=== PATIENT | male | born 1945 | race Two or more races ===

== ENCOUNTER 2017-10-24 07:29 | Inpatient (IN) | payer OTHER ==
[2017-10-21 12:17] LABS: Basophils # (auto) 0 uL; Basophils % (auto) 0.5 % (0.0-2.0); Eosinophils # (auto) 0.2 uL; Eosinophils % (auto) 3.7 % (0.0-7.0); Hematocrit 44.6 % (41.0-53.0); Hemoglobin 14.7 g/dL (13.5-17.5); Lymphocytes # (auto) 2.3 uL; Lymphocytes % (auto) 34.6 % (10.0-50.0); Mean Corpuscular Hemoglobin 30.1 pg (28.0-32.0); Mean Corpuscular Volume 91.2 fL (80.0-100.0); Monocytes # (auto) 0.5 uL; Monocytes % (auto) 7.6 % (0.0-12.0); Neutrophils # (auto) 3.6 uL; Neutrophils % (auto) 53.6 % (37.0-80.0); Nucleated Red Blood Cells % 0.1 %; Platelet Count (auto) 208 10^3/uL (140-450); Red Blood Cells 4.89 10^6/uL (4.5-5.90); Red Cell Distribution Width 14.6 % (11.8-14.3); White Blood Cell 6.7 10^3/uL (4.4-10.8)
[2017-10-21 12:29] LABS: Urine Bacteria NONE SEEN /hpf (None Seen); Urine Blood Negative /uL (Negative); Urine Specific Gravity 1.019 (1.001-1.035); Urine WBC 2 /hpf (0 - 3)
[2017-10-21 12:36] LABS: INR 1.01 (0.9-1.15); Partial Thromboplastin Time 25.2 sec (22.64-33.71)
[2017-10-21 12:39] LABS: BUN/Creatinine Ratio 11.5; Potassium 3.9 mmol/L (3.5-5.1)
[~2017-10-24] VITALS: Ht 172.7 cm; Wt 102.0 kg
[~2017-10-24 07:29] MED LIST: BECL40AE10 IN; CHOL1CAP21 PO; FENO134C PO; IBUP800T24 PO; MONT10TA34 PO; MULT-930 PO; SIMV80TA73 PO; SUMA50TA16 PO; TAMS0.4C36 PO
[2017-10-24] MEDS ORDERED: ceFAZolin 1GM/50ML 50 ML IV ONE (07:46)
[2017-10-24] MEDS ORDERED: LIDOCAINE HCL 100 MG/5ML (2%) SYRG INJ IV ONE (09:25)
[2017-10-24] MEDS ORDERED: MIDAZOLAM HCL 1MG/1ML-2 ML VIAL ONE (09:25)
[2017-10-24] MEDS ORDERED: NEOSTIGMINE 1 MG/ML INJ (10mg/10ML VIAL) ONE (09:36)
[2017-10-24] MEDS ORDERED: GLYCOPYRROLATE 0.2 MG/ML 1ML VIAL ONE (09:36)
[2017-10-24] MEDS ORDERED: PROPOFOL 10 MG/ML 20 ML IV ONE (10:14)
[2017-10-24] MEDS ORDERED: fentaNYL CITRATE 100 MCG/2 ML VL ONE ×2 (10:23→11:02)
[2017-10-24] MEDS ORDERED: HYDROmorphone HCL 2 MG/ML VL IV PRN (10:30)
[2017-10-24] MEDS: ONDANSETRON HCL 4 MG/2 ML VIAL IV ONE ×2 (10:30→11:55)
[2017-10-24] MEDS ORDERED: NALOXONE HCL 0.4 MG/ML VIAL IV PRN (10:30)
[2017-10-24] MEDS ORDERED: LIDOCAINE 2% JELLY 11ml (GLYDO) ONE (11:04)
[2017-10-24] MEDS: MORPHINE SULFATE 4 MG/ML SYR/VIAL IV PRN ×2 (12:07→14:52)
[2017-10-24] MEDS ORDERED: METOCLOPRAMIDE HCL 5MG/ml INJ 2ml VIAL ONE (12:56)
[2017-10-24] MEDS: METOCLOPRAMIDE HCL 5MG/ml INJ 2ml VIAL IV ONE ×2 (13:00→13:15)
[2017-10-24] MEDS: D5W/SOD CHL 0.45% 1,000 ML IV SCH ×2 (14:36→22:36)
[2017-10-24] MEDS ORDERED: diphenhdrAMINE HCL 50 MG/1 ML VL IV PRN (14:45)
[2017-10-24] MEDS ORDERED: MORPHINE SULFATE 4 MG/ML SYR/VIAL IV PRN (14:45)
[2017-10-24] MEDS: CEFOXITIN SODIUM 1 GM in D5W 5% 50 ML IV SCH ×2 (14:45→23:54)
[2017-10-24 15:29] LABS: BUN/Creatinine Ratio 15.3; Calcium 8.8 mg/dL (8.5-10.1); Potassium 4.1 mmol/L (3.5-5.1)
[2017-10-24] MEDS: HYOSCYAMINE SULF 0.125 MG TAB PO PRN ×2 (16:56→23:16)
[2017-10-24] MEDS: ACETAMINOPHEN/CODEINE#3 (300/30mg) TAB PO PRN ×2 (16:56→23:15)
[2017-10-24 17:00] VITALS: BP 153/85
[2017-10-24 22:00] VITALS: BP 135/74
[2017-10-24] MEDS ORDERED: ATORVASTATIN 20 MG TAB PO SCH (22:00)
[2017-10-25 05:00] VITALS: BP 130/73
[2017-10-25] MEDS: CEFOXITIN SODIUM 1 GM in D5W 5% 50 ML IV SCH (05:41)
[2017-10-25] MEDS: D5W/SOD CHL 0.45% 1,000 ML IV SCH (06:56)
[2017-10-25] MEDS: ACETAMINOPHEN/CODEINE#3 (300/30mg) TAB PO PRN (07:09)
[2017-10-25 08:00] VITALS: BP 136/79
[2017-10-25] MEDS: ONDANSETRON HCL 4 MG/2 ML VIAL IV PRN ×2 (08:38→13:03)
[2017-10-25 09:00] VITALS: BP 136/79
[2017-10-25] MEDS ORDERED: MONTELUKAST SODIUM 10 MG TAB PO SCH (10:00)
[2017-10-25 13:00] VITALS: BP 153/79
[2017-10-25 14:26] VITALS: BP 153/79
== END 2017-10-25 15:50 | disposition home or self-care (01) | DRG 713 ==
LOC: SUR 07:29 → WEST WING 07:30
PROVIDERS: ADMIT Urology; ATTEND Urology
PROC: 0VT08ZZ Resection of Prostate, Via Natural or Artificial Opening Endoscopic (ICD-10-PCS; principal; 2017-10-24 10:10)
DX: N40.1 Benign prostatic hyperplasia with lower urinary tract symptoms (principal); N13.8 Other obstructive and reflux uropathy; E78.5 Hyperlipidemia, unspecified; R39.14 Feeling of incomplete bladder emptying; J45.909 Unspecified asthma, uncomplicated; Z90.89 Acquired absence of other organs
CPT/HCPCS: 36415; 80048; 81001; 85025; 85610; 85730; 87086; J0690; J2250; J2405; J2704; J7060